=== PATIENT | female | born 1945 | race Hispanic/Latino ===

== ENCOUNTER → 2017-07-25 | Outpatient (CLI) | payer MEDICARE | END | disposition home or self-care (01) | LOC: RAH 08:29 | PROVIDERS: ATTEND Internal Medicine | DX: Z12.31 Encounter for screening mammogram for malignant neoplasm of breast (principal) | CPT/HCPCS: 77067 ==

== ENCOUNTER → 2018-07-28 | Outpatient (CLI) | payer MEDICARE | END | disposition home or self-care (01) | LOC: RAH 09:37 | PROVIDERS: ATTEND Internal Medicine | DX: Z12.31 Encounter for screening mammogram for malignant neoplasm of breast (principal) | CPT/HCPCS: 77063; 77067 ==

== ENCOUNTER → 2021-04-02 | Outpatient (CLI) | payer MEDICARE | END | disposition home or self-care (01) | LOC: RAH 09:37 | PROVIDERS: ATTEND Internal Medicine | DX: Z12.31 Encounter for screening mammogram for malignant neoplasm of breast (principal) | CPT/HCPCS: 77067 ==

== ENCOUNTER → 2021-12-19 | Outpatient (CLI) | payer MEDICARE | END | disposition home or self-care (01) | LOC: RAH 07:49 | PROVIDERS: ATTEND Internal Medicine | DX: K80.20 Calculus of gallbladder without cholecystitis without obstruction (principal); R10.9 Unspecified abdominal pain | CPT/HCPCS: 76700 ==

== ENCOUNTER 2024-04-01 11:07 | Emergency (ER) | payer MEDICARE ==
[~2024-04-01] VITALS: Ht 162.6 cm; Wt 63.5 kg
[2024-04-01 11:13] VITALS: BP 172/98; PULSE 79; RESP 20; TEMP 97.9
--- NOTE | 2024-04-01 11:18 | ERN ---
ED Note History of Present Illness Stated Complaint: LT SHOULDER INJURY Chief Complaint: Shoulder Injury/Pain Time Seen by MD: 11:15 Dictation: PATIENT IS AN 78-YEAR-OLD FEMALE HERE VIA EMS WITH COMPLAINTS OF LEFT SHOULDER AND PROXIMAL HUMERUS PAIN STATUS POST SAME LEVEL TRIP FALL AT THE LOCAL ORTHOPEDIC DOCTOR'S OFFICE. SHE STATES SHE HAD BEEN TO SEE DR. FAIR TODAY AND WAS IN HIS OFFICE WHEN SHE TRIPPED ON A PIECE OF WORKOUT EQUIPMENT AND FELL ON HER LEFT SHOULDER THE SAME ONE THAT HAS BEEN HURTING WHEN SHE WENT TO SEE HIM TODAY. [facility] INTACT. SHE STATES THE ORIGINAL PAIN THAT SHE HAD GONE TO SEE HIM FOR WAS NOT RELATED TO TRAUMA, SHE WAS HAVING PAIN WITH RANGE OF MOTION. SLING IN PLACE, [facility] IN[facility] Allergies: Coded Allergies: [id number] Reductase Inhibitor (Unverified Allergy, Unknown, 04/01/24) Past Medical History History: Not Applicable RN Note Reviewed/Agreed w/PFSH: Yes Review of System Dictation CONSTITUTIONAL: NEGATIVE EXCEPT FOR HPI HEAD/FACE: NEGATIVE EXCEPT FOR HPI EENT: NEGATIVE EXCEPT FOR HPI RESPIRATORY: NEGATIVE EXCEPT FOR HPI GASTROINTESTINAL/ABDOMINAL: NEGATIVE EXCEPT FOR HPI GENITOURINARY: NEGATIVE EXCEPT FOR HPI MUSCULOSKELETAL: NEGATIVE EXCEPT FOR HPI LEFT SHOULDER AND PROXIMAL HUMERUS PAIN INTEGUMENTARY: NEGATIVE EXCEPT FOR HPI NEUROLOGICAL/PSYCH: NEGATIVE EXCEPT FOR HPI HEMATOLOGIC/LYMPHATIC: NEGATIVE EXCEPT FOR HPI ALL SYSTEMS NEGATIVE, EXCEPT NOTED ABOVE. 13 POINT REVIEW OF SYSTEMS ASSESSED AND ALL NEGATIVE EXCEPT FOR ABOVE. Initial Vital Sign VS Vital Signs Date Time Temp Pulse Resp B/P (MAP) Pulse Ox O2 Delivery O2 Flow Rate FiO2 04/01/24 11:13 97.9 79 20 172/98 99 Physical Exam Dictation VITAL SIGNS REVIEWED GENERAL APPEARANCE: ALERT, ORIENTED X 3, MODERATE ACUTE DISTRESS, WELL DEVELOPED, NOURISHED. HEAD AND FACE: NON-TRAUMATIC. EYES: PERRL, PINK CONJUNCTIVAS, EYELID NO TRAUMA, ANTERIOR CHAMBER WITH ARCUS SENILIS. EARS: PINNAS INTACT AND NO SIGNS OF TRAUMA OR ERYTHEMA EAR CANALS CLEAR AND NO DISCHARGE TM NO ERYTHEMA NOSE: NO DISCHARGE, NO BLEEDING. OROPHARYNX: MOUTH NORMAL, TONGUE PINK, PHARYNX CLEAR,NO ERYTHEMA, TONSILS NO EXUDATES, NO ABSCESSES NOTED, MUCOUS MEMBRANE MOIST NECK: SUPPLE, NON-TENDER, NO THYROMEGALY, NO MASSES, NO JVD, NO BRUITS BREAST:DEFERRED CHEST:NO TENDERNESS, NO CREPITUS, NO PARADOXICAL MOVEMENT, NO RETRACTIONS LUNGS:CLEAR, WELL-VENTILATED, SYMMETRIC, NO RALES, NO WHEEZING, NO RHONCHI, NO STRIDOR, GOOD BREATH SOUNDS BILATERALLY HEART: REGULAR RATE, REGULAR RHYTHM, NO MURMUR, NO GALLOPS VASCULAR: NO PERIPHERAL EDEMA, ABDOMEN: SOFT, POSITIVE BOWEL SOUNDS, NONDISTENDED, NO GUARDING, NONTENDER, NO REBOUND, NO MASSES NO HEPATOMEGALY, NO SPLENOMEGALY, NO LOVE'S SIGN, NO HERNIAS. RECTAL: DEFERRED GENITAL: DEFERRED NEUROLOGICAL: NORMAL SPEECH, MOTOR FUNCTION INTACT, SENSORY FUNCTION INTACT MUSCULOSKELETAL: NECK NONTENDER, FULL RANGE OF MOTION, BACK NONTENDER, FULL RANGE OF MOTION, EXTREMITIES: MODERATE LEFT ANTERIOR SHOULDER AND PROXIMAL HUMERUS TENDERNESS. SLING IN PLACE [facility] SKIN: COLOR PINK, DRY, NO TURGOR, NO RASH, NO LACERATIONS, NO ABRASIONS, NO CONTUSIONS. LYMPHATIC: DEFERRED Results (Laboratory/Radiology) Laboratory/Radiology 1150 LEFT PROXIMAL HUMERUS NECK FRACTURE NONDISPLACED Labs Reviewed?: Yes ED Course ED Course Orders Procedure Category Date Status Time Acetaminophen With PHA 04/01/24 Complete Codeine (Tylenol-Code 11:30 Shoulder Comp 2+Vws Lt RAD 04/01/24 Resulted 11:15 Humerus 2+Vws Lt RAD 04/01/24 Resulted 11:15 Shoulder Immobilizer JONAH 04/01/24 Complete 11:50 Acetaminophen 500mg PHA 04/01/24 Complete Tab (Tylenol 500mg T 13:30 Current Medications Medications (Trade) Dose Ordered Sig/Lizeth Route PRN Reason Start Time Stop Time Status Last Admin Dose Admin Acetaminophen (TYLenol 500MG TAB) 1,000 mg ONCE ONCE PO 04/01/24 13:30 04/01/24 13:31 DC 04/01/24 13:35 Acetaminophen/ Codeine Phosphate (TYLenol-coDEINE TAB) 2 tab ONCE ONCE PO 04/01/24 11:30 04/01/24 13:08 DC Vital Signs Date Time Temp Pulse Resp B/P (MAP) Pulse Ox O2 Delivery O2 Flow Rate FiO2 04/01/24 11:13 97.9 79 20 172/98 99 1150/PATIENT HAS A LEFT PROXIMAL HUMERUS FRACTURE NONDISPLACED. WE WILL PLACE SHOULDER IMMOBILIZER AND WE WILL CONSULT WITH ORTHOPEDIC SURGERY. 1155/SPOKE WITH , HE WAS IN SURGERY AND I INFORMED HIM OF THE X-RAY FINDINGS AND IMMOBILIZER. HE SAID TO HOLD PATIENT IN THE EMERGENCY ROOM AND HE WOULD BE BY TO SEE YOUR SOON HE GOT OUT OF SURGERY. 1307, HERE AND PATIENT WAS EVALUATED. HE IS DISCHARGING PATIENT HOME FOLLOW UP WITH HIM OUTPATIENT. ADDITIONALLY PATIENT DID NOT WANT TYLENOL WITH CODEINE STATES HE WILL TAKE REGULAR TYLENOL. Medical Decision Making MDM MEDICAL DISCHARGE MAKING BASED ON X-RAY OF LEFT SHOULDER AND DISCUSSION WITH DRYash OF ORTHOPEDICS. PATIENT IN SHOULDER IMMOBILIZER [facility] INTACT POST PLACEMENT. PATIENT WILL BE FOLLOWING UP WITH ORTHOPEDIC SURGEON OUTPATIENT DX & DISP Disposition: Discharge Departure Impression: Primary Impression: Left humeral fracture Additional Impression: Fall Condition: Stable Additional Instructions: FOLLOW-UP WITH PRIMARY CARE PROVIDER IN 1 TO 2 DAYS. TAKE MEDICATIONS DIRECTED HERE IN THE EMERGENCY ROOM. OKAY TO CONTINUE HOME MEDICATIONS UNLESS OTHERWISE DISCUSSED DURING YOUR VISIT IN THE EMERGENCY ROOM TODAY. RETURN TO YOUR NEAREST EMERGENCY ROOM IF SYMPTOMS WORSEN OR IF THERE IS NO IMPROVEMENT. CALL 911 IF YOU NEED IMMEDIATE ASSISTANCE. TAKE TYLENOL OR MOTRIN [id number] NEEDED AND IF NO CONTRAINDICATIONS ARE PRESENT. INCREASE ORAL HYDRATION. A WOUND CULTURE OR URINE CULTURE WAS ORDERED HERE IN THE EMERGENCY ROOM DEPARTMENT PLEASE FOLLOW-UP WITH PRIMARY CARE PROVIDER AND ADVISE THEM TO GET REPEAT PORTS FROM OUR FACILITY. IF YOU HAD ANY EDGAR WRAP/SPLINTS THAT WERE APPLIED HERE, PLEASE DO NOT REMOVE THEM UNTIL YOU SEE YOUR PRIMARY CARE OR SPECIALTY. SHOULDER IMMOBILIZER AND NO WEIGHT-BEARING LEFT ARM UNTIL CLEARED BY ORTHOPEDIC SURGEON, KEEP YOUR APPOINTMENT WITH DISCUSSED. Referrals: SNEHA BAZZI MD (PCP) ADELIA TEE MD Time of Disposition: 13:10 I have reviewed the case, and I agree with, Diagnosis and Plan I performed a substantive portion of the visit. I have reviewed and personally made and approve the management plan that is documented in the notes by myself with REHANA/resident. I acknowledged full responsibility for the patient's management plan. BEYN PRAJAPATI NP Apr 01, 2024 11:18 FARZAD CRUZ DO Apr 01, 2024 15:39
--- NOTE | 2024-04-01 12:03 | HMCIMG ---
SHOULDER COMP 2+VWS LT REASON: LEFT ANTERIOR AND PROXIMAL SHOULDER PAIN STATUS POST SAME LEVEL FALL TECHNIQUE: 2 views were obtained. FINDINGS: There is a fracture through the proximal neck of the humerus. This appears nondisplaced. Scapula and clavicle appear intact. IMPRESSION: 1. Nondisplaced fracture proximal neck of the left humerus.
--- NOTE | 2024-04-01 12:04 | HMCIMG ---
HUMERUS 2+VWS LT REASON: LEFT ANTERIOR AND PROXIMAL SHOULDER PAIN STATUS POST SAME LEVEL FALL TECHNIQUE: 2 views were obtained. FINDINGS: There is a nondisplaced fracture proximal neck of the left humerus. Remainder of the left humerus appears normal, there are no additional fractures. Soft tissues appear unremarkable. IMPRESSION: 1. Nondisplaced fracture proximal neck left humerus.
[2024-04-01] MEDS: acetaMINOPHEN WITH coDEINE 1 TAB TAB PO ONE (12:22)
--- NOTE | 2024-04-01 12:22 | NUR ---
SHOULDER IMMOBILIZER APPLIED TO LT SHOULDER, PT TOLERATED WELL.
[2024-04-01] MEDS: acetaMINOPHEN 500 MG TABLET PO ONE (13:35)
--- NOTE | 2024-04-01 18:40 | CONS ---
CONSULT NOTE: REQUESTING PHYSICIAN: Emergency department physician REASON FOR CONSULT: Left shoulder fracture HISTORY OF PRESENT ILLNESS: This is an 78-year-old female patient that was in our office Physical therapy Department when apparently she tripped and fell hitting her left shoulder. The office stated that the patient had a very low blood pressure and in the opinion she fainted. She was transferred to the emergency room via ambulance where she was evaluated. She was complaining of pain to the left shoulder and x-rays taken revealed the presence of a fracture proximal humerus. PAST MEDICAL HISTORY: GERD PAST SURGICAL HISTORY: ALLERGIES: Statins. SOCIAL HISTORY: Denies use tobacco or alcohol. She is retired FAMILY HISTORY: No relevant for history REVIEW OF SYSTEMS: The patient denies that she fainted. She does not take any medication for blood pressure. PHYSICAL EXAMINATION: The patient is awake, alert and oriented x3, she is in mild distress secondary to pain and he is wearing a shoulder immobilizer already. Head and face revealed no traumatic findings. I exam revealed pupils equally round reactive to light and accommodation. Ears and nose with no deformities or discharge. Oropharynx with normal mucosa. Neck was supple, no masses, no tenderness, normal pulses with no bruits. Her chest was clear to auscultation and has no pain. Her ventilatory effort was normal In either and rectal exam were deferred. Extremities reveal no peripheral edema, normal pulses. Her left arm was in a shoulder immobilizer and was not examined because of her pain and discomfort. Neurovascular exam is otherwise normal. RADIOLOGIC STUDIES: Two views of the left shoulder revealed the presence of a subcapital fracture of the proximal humerus with very minimal displacement but adequate alignment. ASSESSMENT: History of fall with resultant left proximal humerus fracture, closed, very minimally displaced PLAN: The patient will be dismissed from the emergency room. She is to wear the shoulder immobilizer that she has to remove only to do shower. The patient is to be seen in our office next week by our nurse practitioner, Denisha St, for further x-rays and evaluation. Then she will be given an appointment to come back two weeks later for assessment and new x-rays and to determine if the fracture has a started to heal so that she can start physical therapy. The patient is going to take only Tylenol due to her girth and inability to take pain medications and anti-inflammatories. The patient understands the plan and agrees ADELIA TEE MD Apr 01, 2024 18:40
== END 2024-04-01 13:36 | disposition home or self-care (01) ==
LOC: EDH 11:07
DX: S42.295A Other nondisplaced fracture of upper end of left humerus, initial encounter for closed fracture (principal); K21.9 Gastro-esophageal reflux disease without esophagitis; Z88.8 Allergy status to other drugs, medicaments and biological substances; W01.0XXA Fall on same level from slipping, tripping and stumbling without subsequent striking against object, initial encounter; Y93.89 Activity, other specified; Y92.89 Other specified places as the place of occurrence of the external cause; Y99.8 Other external cause status
CPT/HCPCS: 29105; 73030; 73060; 99284